=== PATIENT | male | born 1950 | race Caucasian/White ===

== ENCOUNTER → 2024-05-21 12:11 | Outpatient (REF) | payer MEDICARE, SELFPAY | LOC: RAD 12:11 | PROVIDERS: ATTENDING PHYSICIAN Nurse Practitioner Primary Care; REFERRING PHYSICIAN Physician Assistant | DX: C43.21 Malignant melanoma of right ear and external auricular canal (principal) | CPT/HCPCS: 71046 ==

== ENCOUNTER → 2024-09-28 11:28 | Outpatient (REF) | payer MEDICARE, SELFPAY | LOC: PAVMRI 11:28 | PROVIDERS: ATTENDING PHYSICIAN Psychiatry & Neurology Neurology; FAMILY PHYSICIAN Physician Assistant | DX: R41.3 Other amnesia (principal) | CPT/HCPCS: 70551 ==